=== PATIENT | male | born 1980 ===

== ENCOUNTER 2020-08-11 18:36 | Emergency (ER) | payer SELFPAY ==
[~2020-08-11] VITALS: Ht 175 cm; Wt 77.0 kg
[2020-08-11] MEDS ORDERED: LIDOCAINE 1% INJ 20 ML 20 ML VIAL ONE (18:43)
[2020-08-11] MEDS ORDERED: HYDROcodone/APAP 7.5 MG/325 MG (LORTAB, LORCET PLUS) TABLET PO ONE (18:43)
[2020-08-11] MEDS ORDERED: TETANUS,DIPTH,PERTUSS P/F (BOOSTRIX) 0.5 ML VIAL IM ONE (19:00)
[2020-08-11] MEDS ORDERED: RX-CEPHALEXIN (KEFLEX) 250 MG CAP PPK#4 PO STA ×2 (19:18→19:24)
[2020-08-11] MEDS ORDERED: CEPH500T PO (19:25)
--- NOTE | 2020-08-11 19:26 | ED Lower Extremity ---
General Chief Complaint: Laceration Stated Complaint: R LEG LAC Nursing Triage Note: PT TO ROOM 3 PER W/C PT STATES CUT R ANKLE AREA W CHAIN SAW. PT HAS APPROX 5CM LAC TO LOW ANKLE AREA. PT CLEANED W STERILE WATER. Nursing Sepsis Screen: No Definite Risk (DEMETRIUS SCHMITT) History of Present Illness Date Seen by Provider: Aug 11, 2020 Time Seen by Provider: 18:40 Initial Comments 40-year-old male presents after a chainsaw injury to his right right medial ankle. He reports being in a tree, he was trimming a limb when it cut his ankle. He wrapped a T-shirt around the wound and came immediately here. He reports his last tetanus vaccine was over 6 years ago. He denies any other injuries and he was able to climb other tree safely. Onset: just prior to arrival Pain/Injury Location: right ankle Method of Injury: incised (DEMETRIUS SCHMITT) Allergies and Home Medications Allergies Coded Allergies: No Known Drug Allergies (Unverified , 08/11/20) Home Medications Cephalexin 500 Mg Tablet, 500 MG PO TID Prescribed by: DEMETRIUS SCHMITT on 08/11/201924 Patient Home Medication List Home Medication List Reviewed: Yes (DEMETRIUS SCHMITT) Review of Systems Constitutional: no symptoms reported, see HPI Skin: see HPI, other (Chainsaw injury right medial ankle) (DEMETRIUS SCHMITT) All Other Systems Reviewed Negative Unless Noted: Yes (DEMETRIUS SCHMITT) Past Yyxlwgr-Ppklsh-Bgqoqy Hx Past Med/Social Hx: Reviewed Nursing Past Med/Soc Hx (DEMETRIUS SCHMITT) Patient Social History Alcohol Use: Denies Use Smoking Status: Never a Smoker Recent Infectious Disease Expo: No Recent Hopitalizations: No (DEMETRIUS SCHMITT) Immunizations Up To Date Tetanus Booster (TDap): More than 5yrs (DEMETRIUS SCHMITT) Seasonal Allergies Seasonal Allergies: No (DEMETRIUS SCHMITT) Past Medical History Surgeries: No Respiratory: No Cardiac: No Neurological: No Genitourinary: No Gastrointestinal: No Musculoskeletal: No Endocrine: No HEENT: No Cancer: No Psychosocial: No Blood Disorders: No (DEMETRIUS SCHMITT) Physical Exam Vital Signs Vital Signs - First Documented 08/11/20 08/11/20 18:36 19:38 Temp 36.9 Pulse 113 Resp 18 B/P (MAP) 126/93 (104) Pulse Ox 99 O2 Delivery Room Air (FABRICE LANDA MD) Vital Signs Capillary Refill : Less Than 3 Seconds (DEMETRIUS SCHMITT) Height, Weight, BMI Height: '" Weight: lbs. oz. kg; 25.00 BMI Method: General Appearance: WD/WN, no apparent distress HEENT: normal ENT inspection, pharynx normal Cardiovascular: normal peripheral pulses, regular rate, rhythm Respiratory: chest non-tender, lungs clear Ankles: right ankle normal range of motion, right ankle abrasions/lacerations (5 cm medial ankle posterior to malleolus, no active bleeding, through the skin and subcutaneous tissue but not into the muscle), right ankle soft tissue tenderness (Secondary to injury), right ankle other (Resisted dorsiflexion, plantarflexion, inversion and eversion V/V) Feet: right foot non-tender, right foot normal inspection, right foot normal range of motion, right foot no evidence of injury Neurologic/Tendon: normal sensation, normal motor functions, normal tendon functions Neurologic/Psychiatric: no motor/sensory deficits, alert, normal mood/affect, oriented x 3 Skin: normal color, warm/dry (DEMETRIUS SCHMITT) Procedures/Interventions Wound Location: Lower Extremities (right ankle, medial aspect) Wound's Depth, Shape: into muscle Wound Explored: foreign body removed Irrigated w/ Saline (ccs): 1500 Betadine Prep?: Yes Anesthesia: 1% Lidocaine Volume Anesthetic (ccs): 10 Suture: Ethlion Suture Size: 4-0 Number of Sutures: 10 Sterile Dressing Applied?: Yes Progress Wound well approximated, patient tolerated procedure well. Sterile bulky dressing applied. (DEMETRIUS SCHMITT) Progress/Results/Core Measures Results/Orders My Orders Orders - FABRICE LANDA MD Hydrocodone/Apap 7.5/325 Tab (Lortab 7. (08/11/20 18:43) Lidocaine 1% Inj 20 Ml (Xylocaine 1% Inj (08/11/20 18:43) (FABRICE LANDA MD) Medications Given in ED Current Medications Medications Dose Ordered Sig/Seferino Route Start Time Stop Time Status Last Admin Dose Admin Acetaminophen/ Hydrocodone Bitart 1 ea STK-MED ONCE PO 08/11/20 18:43 08/11/20 18:45 DC 08/11/20 18:48 1 EA Diphtheria/ Tetanus/Acell Pertussis 0.5 ml ONCE ONCE IM 08/11/20 19:00 08/11/20 19:01 DC 08/11/20 19:07 0.5 ML Lidocaine HCl 20 ml STK-MED ONCE .ROUTE 08/11/20 18:43 08/11/20 18:45 DC 08/11/20 18:47 15 ML (FABRICE LANDA MD) Vital Signs/I&O 08/11/20 08/11/20 18:36 19:38 Temp 36.9 36.6 Pulse 113 96 Resp 18 18 B/P (MAP) 126/93 (104) 111/79 Pulse Ox 99 98 O2 Delivery Room Air (FABRICE LANDA MD) Blood Pressure Mean: 104 Departure Impression Primary Impression: Contact with chainsaw as cause of accidental injury Additional Impression: Laceration of right ankle Qualified Codes: S91.011A - Laceration without foreign body, right ankle, initial encounter Disposition: HOME, SELF-CARE Condition: Improved Departure-Patient Inst. Decision time for Depature: 19:10 (DEMETRIUS SCHMITT) Referrals: [facility] [place]LOCAL PHYSICIAN (PCP) Primary Care Physician Patient Instructions: Laceration Repair With Stitches (DC) Add. Discharge Instructions: Keep wound clean and dry for the next 24 to 48 hours. You may shower, clean the wound with peroxide and/or alcohol after showering. Wound may be open to air when at home, however cover with a Band-Aid or light dressing when out of the house. Do not submerge the wound in standing water: Hot tub, bathtub, pool or lakes. You may shower only. Do not apply any ointments or creams to the wound. Watch for signs of infection: Redness, swelling, discolored drainage, or fever Take antibiotics as prescribed. You may alternate between Tylenol 650 mg and ibuprofen 600 mg every 4 hours for pain. For swelling apply ice and elevate your ankle higher than your heart. Stay like this for approximately 30 minutes every 2 hours. Return to the emergency department in the 7 to 10 days to have your sutures removed. Return to the emergency department for new, urgent healthcare needs. All discharge instructions reviewed with patient and/or family. Voiced understanding. Scripts Cephalexin (Cephalexin) 500 Mg Tablet 500 MG PO TID, #15 TAB 0 Refills Prov: DEMETRIUS SCHMITT 08/11/20 Attending physician note: I was physically present in the emergency department as attending physician dur ing the care of this patient, but I was not directly involved in the care of this patient or involved in the decision making process during this case. (FABRICE LANDA MD) DEMETRIUS SCHMITT Aug 11, 2020 19:26 FABRICE LANDA MD Aug 12, 2020 04:23
[2020-08-11 19:38] VITALS: BP 111/79
[2020-08-12] MEDS ORDERED: ACHD5005 PO (17:54)
== END 2020-08-11 19:43 | disposition home or self-care (01) ==
LOC: ER 18:38
DX: S91.011A Laceration without foreign body, right ankle, initial encounter (principal); Z23 Encounter for immunization; W31.2XXA Contact with powered woodworking and forming machines, initial encounter
CPT/HCPCS: 12002; 90715

== ENCOUNTER 2020-08-12 17:00 | Emergency (ER) | payer SELFPAY ==
[~2020-08-12] VITALS: Ht 180.3 cm; Wt 97.5 kg
[~2020-08-12 17:00] MED LIST: CEPH500T PO
[2020-08-12 17:40] VITALS: BP 118/80
[2020-08-12] MEDS ORDERED: ACHD5005 PO (17:54)
--- NOTE | 2020-08-12 17:55 | ED Lower Extremity ---
General Stated Complaint: REQUESTING DIFFERENT PAIN MEDICATIONS FOR LEG LAC Source: patient Exam Limitations: no limitations History of Present Illness Date Seen by Provider: Aug 12, 2020 Time Seen by Provider: 17:40 Initial Comments This is a well appearing 40 yo male who presented to ED requesting change in pain management regimen. States he was here yesterday due to chain saw accident where he sustained a laceration to his right ankle. He was given Tramadol for pain, however states this medication causes him to feel off balance, dizzy, and sick to his stomach. States medication does not help his pain and causes horrible side effects. Would like to see about changing his pain management treatment. No other complaints. Allergies and Home Medications Allergies Coded Allergies: No Known Drug Allergies (Unverified , 08/11/20) Home Medications Cephalexin 500 Mg Tablet, 500 MG PO TID Prescribed by: DEMETRIUS SCHMITT on 08/11/201924 Hydrocodone/Acetaminophen 1 Each Tablet, 1 TAB PO Q6H PRN for PAIN-MODERATE (5- 7) Prescribed by: ALCON MABRY on 08/12/201754 Patient Home Medication List Home Medication List Reviewed: Yes Review of Systems Constitutional: no symptoms reported Respiratory: no symptoms reported Gastrointestinal: no symptoms reported Musculoskeletal: see HPI Skin: see HPI Psychiatric/Neurological: Denies Numbness, Denies Paresthesia, Denies Tingling Past Vlrotlp-Zsgcjw-Yynuew Hx Patient Social History Recent Hopitalizations: No Immunizations Up To Date Tetanus Booster (TDap): More than 5yrs Seasonal Allergies Seasonal Allergies: No Past Medical History Surgeries: No Respiratory: No Cardiac: No Neurological: No Genitourinary: No Gastrointestinal: No Musculoskeletal: No Endocrine: No HEENT: No Cancer: No Psychosocial: No Blood Disorders: No Physical Exam Vital Signs Vital Signs - First Documented 08/12/20 17:40 Temp 36.8 Pulse 86 Resp 16 B/P (MAP) 118/80 (93) Pulse Ox 97 O2 Delivery Room Air Capillary Refill : Height, Weight, BMI Height: '" Weight: lbs. oz. kg; 25.00 BMI Method: General Appearance: WD/WN, no apparent distress HEENT: normal ENT inspection, pharynx normal Neck: full range of motion, normal inspection Cardiovascular: regular rate, rhythm, no murmur Respiratory: lungs clear, normal breath sounds Ankles: left ankle non-tender, left ankle normal inspection, left ankle normal range of motion; right ankle other (laceration with suture repair to right medial ankle. Sutures intact. No redness or drainage around site. Dressing C/D/I.) Feet: bilateral foot non-tender, bilateral foot normal inspection, bilateral foot normal range of motion Neurologic/Tendon: normal sensation, normal motor functions, normal tendon functions Neurologic/Psychiatric: no motor/sensory deficits, alert, normal mood/affect, oriented x 3 Skin: normal color, warm/dry Procedures/Interventions Suture Size: 4-0 Progress/Results/Core Measures Results/Orders My Orders Orders - ALCON MABRY APRN Hydrocodone/Apap 5/325 Tablet (Lortab 5 (08/12/20 18:15) Hydrocodone/Apap 5/325 Tablet (Lortab 5 (08/12/20 18:09) Vital Signs/I&O 08/12/20 17:40 Temp 36.8 Pulse 86 Resp 16 B/P (MAP) 118/80 (93) Pulse Ox 97 O2 Delivery Room Air Departure Impression Primary Impression: Pain management Additional Impression: Laceration of ankle Disposition: 01 HOME, SELF-CARE Condition: Improved Departure-Patient Inst. Decision time for Depature: 17:50 Referrals: NO,LOCAL PHYSICIAN (PCP/Family) Primary Care Physician Patient Instructions: Wound Care, Laceration Repair With Stitches ED Add. Discharge Instructions: Plan: 1. Continue previous directions regarding wound care. 2. Take Hydrocodone 5/325mg by mouth every 6 hours as needed for pain. 3. Return for any new, concerning or worsening symptoms. Scripts Hydrocodone/Acetaminophen (Hydrocodone-Acetamin 5-325 mg) 1 Each Tablet 1 TAB PO Q6H PRN for PAIN-MODERATE (5-7) for 5 Days, #20 TAB 0 Refills Prov: ALCON MABRY PIPE INSULATOR HELPER 08/12/20 ALCON MABRY APRN Aug 12, 2020 17:55
[2020-08-12] MEDS ORDERED: HYDROcodone/APAP 5 MG/325 MG (LORTAB) TAB ONE (18:09)
[2020-08-12] MEDS ORDERED: HYDROcodone/APAP 5 MG/325 MG (LORTAB) TAB PO ONE (18:15)
== END 2020-08-12 18:16 | disposition home or self-care (01) ==
LOC: EDUNIT# 17:00 → ER 17:02
DX: S91.019A Laceration without foreign body, unspecified ankle, initial encounter (principal); X58.XXXA Exposure to other specified factors, initial encounter

== ENCOUNTER 2020-08-20 12:12 | Emergency (ER) | payer SELFPAY ==
[~2020-08-20] VITALS: Ht 180 cm; Wt 99.0 kg
[~2020-08-20 12:12] MED LIST changes: +ACHD5005 PO
== END 2020-08-20 13:00 | disposition home or self-care (01) ==
LOC: EDUNIT# 12:12 → ER 12:13
DX: Z48.02 Encounter for removal of sutures (principal)

== ENCOUNTER 2020-09-26 18:51 | Emergency (ER) | payer SELFPAY ==
[~2020-09-26] VITALS: Ht 180 cm; Wt 100.0 kg
[2020-09-26 19:03] VITALS: BP 125/86
--- NOTE | 2020-09-26 19:10 | ED Integumentary General ---
General Stated Complaint: STUNG BY JAYLAN Source: patient Exam Limitations: no limitations History of Present Illness Date Seen by Provider: Sep 26, 2020 Time Seen by Provider: 19:06 Initial Comments To ER with reports that he was stung by jaylan yesterday wants to the back of the right leg twice to the back of the left leg. Has taken no medications with these lesions remain painful. Timing/Duration: just prior to arrival Severity: moderate Possible Cause: no cause identified Associated Symptoms: denies symptoms Allergies and Home Medications Allergies Coded Allergies: No Known Drug Allergies (Unverified , 08/11/20) Home Medications Cephalexin 500 Mg Tablet, 500 MG PO TID Prescribed by: DEMETRIUS SCHMITT on 08/11/201924 Hydrocodone/Acetaminophen 1 Each Tablet, 1 TAB PO Q6H PRN for PAIN-MODERATE (5- 7) Prescribed by: ALCON MABRY on 08/12/20 175 Patient Home Medication List Home Medication List Reviewed: Yes Review of Systems Review of Systems Constitutional: see HPI EENTM: see HPI Respiratory: no symptoms reported Cardiovascular: no symptoms reported Genitourinary: no symptoms reported Musculoskeletal: no symptoms reported Skin: see HPI Psychiatric/Neurological: No Symptoms Reported Endocrine: No Symptoms Reported Past Ysqsdki-Hiqnrr-Djpjrr Hx Immunizations Up To Date Tetanus Booster (TDap): More than 5yrs Seasonal Allergies Seasonal Allergies: No Past Medical History Surgeries: No Respiratory: No Cardiac: No Neurological: No Genitourinary: No Gastrointestinal: No Musculoskeletal: No Endocrine: No HEENT: No Cancer: No Psychosocial: No Blood Disorders: No Physical Exam Vital Signs Capillary Refill : General Appearance: WD/WN, no apparent distress HEENT: PERRL/EOMI, normal ENT inspection Neck: non-tender, full range of motion Respiratory: no respiratory distress, no accessory muscle use Neurologic/Psychiatric: alert, normal mood/affect, oriented x 3 Skin: normal color, warm/dry Skin Problem Location: lower extremities Skin Problem Character: other (Separate areas about palm sized erythema well demarcated with a central punctum to the posterior aspect of each calf consistent with an insect sting.) Procedures/Interventions Suture Size: 4-0 Progress/Results/Core Measures Results/Orders My Orders Orders - NELLY MACIEL APRN Diphenhydramine Injection (Benadryl Inje (09/26/20 19:15) Dexamethasone Injection (Decadron Inje (09/26/20 19:15) Ketorolac Injection (Toradol Injection) (09/26/20 19:30) Medications Given in ED Current Medications Medications Dose Ordered Sig/Seferino Route Start Time Stop Time Status Last Admin Dose Admin Dexamethasone Sodium Phosphate 10 mg ONCE ONCE IM 09/26/20 19:15 09/26/20 19:16 DC 09/26/20 19:16 10 MG Diphenhydramine HCl 25 mg ONCE ONCE IM 09/26/20 19:15 09/26/20 19:16 DC 09/26/20 19:16 25 MG Ketorolac Tromethamine 60 mg ONCE ONCE IM 09/26/20 19:30 09/26/20 19:31 DC 09/26/20 19:25 60 MG Departure Impression Primary Impression: Wasp sting Disposition: 01 HOME, SELF-CARE Condition: Stable Departure-Patient Inst. Decision time for Depature: 19:08 Referrals: NO,LOCAL PHYSICIAN (PCP/Family) Primary Care Physician Patient Instructions: Insect Bites and Stings (DC) Add. Discharge Instructions: Cold compresses to the area. Return to ER for any concerns such as increasing redness as an antibiotic may be warranted at that point though it is not currently indicated. NELLY MACIEL COOPERATIVE EXTENSION AGENT Sep 26, 2020 19:10
[2020-09-26] MEDS ORDERED: diphenhydrAMINE 50 MG/ML INJ (BENADRYL) IM ONE (19:15)
[2020-09-26] MEDS ORDERED: KETOROLAC 60 MG/2 ML VIAL IM ONE (19:30)
--- OUTSIDE RECORDS SUMMARY | 2020-09-28 11:03 | XMS REPORT | Clinical Summary ---
Author Author [facility] Address Unknown Phone Unavailable Care Team Providers Care Hog Confinement System Manager Name Role Phone PCP Unavailable Allergies No known active allergies Medications End Date Status Medication Sig Dispensed Refills Start Date Active amitriptyline (ELAVIL) 25 take 1 tablet 30 2 MG tablet (25MG) by 2 oral route every day at bedtime Active traMADol (ULTRAM) 50 MG take 1 tablet 30 0 tablet (50MG) by 3 oral route 4 times every day as needed for pain Active oxycodone-acetaminophen take 1 - 2 190 0 (PERCOCET) 7.5-325 MG per Tablet by 3 tablet oral route every 6 hours as needed Active cyclobenzaprine take 1 tablet 60 0 05/24/19 1 (FLEXERIL) 10 MG tablet (10MG) by 2 oral route 3 times every day as needed Active sulindac (CLINORIL) 200 take 1 tablet 60 2 MG tablet (200MG) by 2 oral route 2 times every day with food Active .reconcile (MEDICATION No Sig 1 0 LIST IMPORTED) 3 Active Problems Not on file Social History Date Tobacco Use Types Packs/Day Years Used Never Smoker Sex Assigned at Date Recorded Not on file Last Filed Vital Signs Reading Time Taken Comments Vital Sign 130/72 02/02/2012 10:11 AM 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 Blood Pressure - - Pulse - - Temperature - - Respiratory Rate - - Oxygen Saturation - - Inhaled Oxygen Concentration 87.5 kg (193 lb) 02/02/2012 10:11 AM 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 Weight - - Height - - Body Mass Index Plan of Treatment Health Maintenance Due Date Last Done Comments Varicella Vaccines (1 of 07/13/1980 2 - 2-dose childhood series) COVID-19 Vaccine (1) 1991 Hepatitis C Screening 07/13/1997 DTaP,Tdap,and Td Vaccines 07/13/1998 (1 - Tdap) MMR Vaccines-Adult 07/13/1998 Influenza Vaccine (#1) 2020 Pneumo-Vaccine: 65+Yrs (1 07/13/2044 of 1 - PPSV23) HIB Vaccines Aged Out No longer eligible based on patient's age to complete this topic IPV Vaccines Aged Out No longer eligible based on patient's age to complete this topic Meningococcal Vaccine Aged Out No longer eligib le based on patient's age to complete this topic Pneumo-Vaccine: Peds (0-5 Aged Out No longer el igible based on patient's age to Yrs) & At-Risk Patients complete this topic (6-64 Yrs) Rotavirus Vaccines Aged Out No longer eligible based on patient's age to complete this topic Results Not on filefrom Last 3 Months Advance Directives For more information, please contact: [phone] Patient Dyeing Machine Back Tender Explanation Type Date Recorded Advance Directives and Living Will Power of Student Life Coordinator
== END 2020-09-26 19:39 | disposition home or self-care (01) ==
LOC: EDUNIT# 18:51 → ER 18:53
DX: T63.461A Toxic effect of venom of wasps, accidental (unintentional), initial encounter (principal)
CPT/HCPCS: 96372; 99284